=== PATIENT | female | born 1990 | race Hispanic/Latino ===

== ENCOUNTER 2019-01-22 07:46 | Emergency (ER) | payer OTHER ==
[~2019-01-22] VITALS: Ht 157.5 cm; Wt 79.4 kg
--- OUTSIDE RECORDS SUMMARY | 2019-01-22 07:48 | XMS REPORT ---
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 Allergies, Adverse Reactions, Alerts Allergy Name Allergy Type Status Severity Reaction(s) Onset Date Inactive Date Treating Clinician Comments No Known Allergies DA Active U 2018-11-30 00:00:00 Medications This patient has no known medications. Results Test Description Test Time Test Comments Text Results Atomic Results Result Comments - US PREG UT TRANSVAGINAL 2018-11-30 11:03:00 Patient Name: PACO CHRISTY Unit No: [id number] EXAMS: CPT CODE: [id number] PREG UT TRANSVAGINAL [address] [facility] [address], [place] [address] OBSTETRICAL ULTRASOUND REPORT Pat. Name: PACO CHRISTY Pat. No: [id number] Study Date: 11/30/2018 10:47am , Age: 07 1990, 27 Pregnancies: 3, Para 2 LMP: 09/28/2018 GA by LMP: 09w0d GA by US: 08w2d GA Selected: 09w0d (LMP) AUGUSTO: 07/05/2019 Referring MD: Damari Cardoso Bone Char Puller: Ivette Wallace RDMS CPT4: [id number] Hist/Ind: Scan 1: Vaginal Bleeding MEASUREMENTS AGE GROWTH EVALUATION Measurement GA Range Srce %for GA Ratios ----- ---- ------- CRL 1.8 cm 08w2d ([id number]) Hadl CRL <05 GA for sonogram 08w2d ([id number]) based on (CRL) Avg Cervical Length: 3.3 cm MATERNAL ANATOMY Ovaries LxHxW (cm) Right 2.4 x 2.1 x 2.0 Vol: 5.3cc Left 4.4 x 2.3 x 2.7 Vol: 14.3cc Ovarian Cysts LxHxW (cm) L1: 1.6 x 1.6 x 2.0 CLINICAL SUMMARY Type of Gestation: Vicente motion and organs seen: heart motion NOT seen somatic activity NOT observed abnormalities observed: CARDIAC ACTIVITY NOT SEEN. EMBRYONIC DEMISE WITH FAILED IUP. Uterus and adnexa: No significant abnormality is seen. Thank you for allowing us to participate in the care of this patient. Fox Weaver M.D. Electronic Signature 11/30/2018 11:03am [facility] NAME: PACO CHRISTY Radiology Department PHYS: 14 - Damari Cardoso MD [address] : 1990 AGE: 27 SEX: F [place], [place] [address] LOC: CASSIDY PHONE #: [phone] EXAM DATE: 11/30/2018 STATUS: [facility] ER FAX #: [phone] RAD NO: Page 1 Signed Report (CONTINUED) Patient Name: PACO CHRISTY Unit No: [id number] EXAMS: CPT CODE: [id number] [facility] TRANSVAGINAL [address] <Continued> El ectronically Signed by Fox Weaver MD on 11/30/2018 at 1103 Reported and signed by: Fox Weaver MD CC: Damari Cardoso MD Technologist: Ivette Wallace RDMS Probe: [id number] Trnscrbd D/ ( 1103) [email or web address] Orig Print D/T: S: 11/30/2018 (1102) The [facility] NAME: PACO CHRISTY Radiology Department PHYS: aDmari Kasper MD [address] : 1990 AGE: 27 SEX: F [place] [address] LOC: MadhaviERS PHONE #: [phone] EXAM DATE: 11/30/2018 STATUS: REG ER FAX #: [phone] RAD NO: Page 2 Signed Report Patient Name: PACO CHRISTY Unit No: [id number] EXAMS: CPT CODE: [id number] US PREG UT TRANSVAGINAL [address]94 <Continued> The [facility] NAME: PACO CHRISTY Radiology Department PHYS: Damari Kasper MD [address] : 1990 AGE: 27 SEX: F [place] [address] LOC: MadhaviERS PHONE #: [phone] EXAM DATE: 11/30/2018 STATUS: REG ER FAX #: [phone] RAD NO: Page 3 Signed Report - US PREG EVAL 1ST TRIMTR 2018-11-30 11:03:00 Patient Name: PACO CHRISTY Unit No: [id number] EXAMS: CPT CODE: [id number] US PREG EVAL 1ST TRIMTR [address] [facility] [address] [place], [place] [address] OBSTETRICAL ULTRASOUND REPORT Pat. Name: PACO CHRISTY Pat. No: [id number] Study Date: 11/30/2018 10:47am , Age: 07 1990, 27 Pregnancies: 3, Para 2 LMP: 09/28/2018 GA by LMP: 09w0d GA by US: 08w2d GA Selected: 09w0d (LMP) AUGUSTO: 07/05/2019 Referring MD: Damari Cardoso Bone Char Puller: Ivette Wallace RDMS CPT4: [id number] Admitting MD: Damari Cardoso Hist/Ind: Scan 1: Vaginal Bleeding MEASUREMENTS AGE GROWTH EVALUATION Measurement GA Range Srce %for GA Ratios ----- ---- ------- CRL 1.8 cm 08w2d ([id number]) Hadl CRL <05 GA for sonogram 08w2d ([id number]) based on (CRL) Avg Cervical Length: 3.3 cm MATERNAL ANATOMY Ovaries LxHxW (cm) Right 2.4 x 2.1 x 2.0 Vol: 5.3cc Left 4.4 x 2.3 x 2.7 Vol: 14.3cc Ovarian Cysts LxHxW (cm) L1: 1.6 x 1.6 x 2.0 CLINICAL SUMMARY Type of Gestation: Vicente motion and organs seen: heart motion NOT seen somatic activity NOT observed abnormalities observed: CARDIAC ACTIVITY NOT SEEN. EMBRYONIC DEMISE WITH FAILED IUP. Uterus and adnexa: No significant abnormality is seen. Thank you for allowing us to participate in the care of this patient. Fox Weaver M.D. Electronic Signature 11/30/2018 11:03am [facility] NAME: PACO CHRISTY Radiology Department PHYS: 14 - Damari Cardoso MD [address] : 1990 AGE: 27 SEX: F [place], [place] [address] LOC: CASSIDY PHONE #: [phone] EXAM DATE: 11/30/2018 STATUS: DEP ER FAX #: [phone] RAD NO: Page 1 Signed Report (CONTINUED) Patient Name: PACO CHRISTY Unit No: [id number] EXAMS: CPT CODE: [id number] US PREG EVAL 1ST TRIMTR 36540 <Continued> at 1103 Reported and signed by: Fox Weaver MD CC: Damari Cardoso MD Technologist: Ivette Wallace RDMS Probe: Trnscrbd D/ (1108) [email or web address] Orig Print D/T: S: 12/04/2018 (1411) The [facility] NAME: PACO CHRISTY Radiology Department PHYS: [facility] [address] : 1990 AGE: 27 SEX: F [place] [address] LOC: MadhaviERS PHONE #: [phone] EXAM DATE: 11/30/2018 STATUS: DEP ER FAX #: [phone] RAD NO: Page 2 Signed Report Patient Name: PACO CHRISTY Unit No: [id number] EXAMS: CPT CODE: [id number] US PREG EVAL 1ST TRIMTR [address]388 <Continued> [facility] NAME: PCAO CHRISTY Radiology Department PHYS: Damari Kasper MD [address] : 1990 AGE: 27 SEX: F [place] [address] LOC: Thanh.ERS PHONE #: [phone] EXAM DATE: 11/30/2018 STATUS: DEP ER FAX #: [phone] RAD NO: Page 3 Signed Report UA RFLX MICR CULT IF INDICATED 2018-11-30 10:26:00 UA COLOR (test code=COLU) JAY YELLOW UA APPEARANCE (test code=APPU) CLOUDY CLEAR UA GLUCOSE DIPSTICK (test code=DGLUU) NEGATIVE NEG UA BILIRUBIN DIPSTICK (test code=BILU) NEGATIVE NEG UA KETONE DIPSTICK (test code=KETU) NEGATIVE NEG UA SPECIFIC GRAVITY (test code=SGU) 1.023 1.001-1.035 UA BLOOD DIPSTICK (test code=ÁNGELA) 3+ NEG UA PH DIPSTICK (test code=HARMONY) 6.0 5-9 UA PROTEIN DIPSTICK (test code=PROU) 1+ NEG UA UROBILINIOGEN DIPSTICK (test code=URO) 2.0 mg/dL NEG UA NITRITE DIPSTICK (test code=AFSHIN) NEG NEG UA LEUKOCYTE ESTERASE DIPSTICK (test code=LEUU) 1+ NEG UA WBC (test code=WBCU) 16-20 #/hpf NONE SEEN UA RBC (test code=RBCU) 6-10 #/hpf NONE SEEN UA EPITHELIAL CELLS (test code=EPIU) MODERATE #/HPF RARE-FEW UA BACTERIA (test code=BACU) FEW /HPF RARE-FEW UA MUCUS (test code=MUCU) RARE NONE SEEN Indication for culture: Suprapubic PainCOMPREHENSIVE METABOLIC PANEL 2018-11-30 10:22:00* Test Item Value Reference Range Comments SODIUM (test code=NA) 139 mEq/L 135-145 POTASSIUM (test code=K) 3.5 mEq/L 3.5-5.0 CHLORIDE (test code=CL) 103 mEq/L 100-115 CARBON DIOXIDE (test code=CO2) 26 mEq/L 22-31 ANION GAP (test code=GAP) 13.30 10-20 GLUCOSE (test code=GLU) 96 mg/dL 65-110 BLOOD UREA NITROGEN (test code=BUN) 8 mg/dL 7-18 GLOMERULAR FILTRATION RATE (test code=GFR) 148 ml/min >60 CREATININE (test code=CREAT) 0.5 mg/dL 0.5-1.0 TOTAL PROTEIN (test code=PROT) 8.0 gm/dL 6.3-8.2 ALBUMIN (test code=ALB) 3.1 gm/dL 3.4-4.8 CALCIUM (test code=CA) 8.4 mg/dL 8.4-10.2 BILIRUBIN TOTAL (test code=BILT) 0.2 mg/dL 0.2-1.0 SGOT/AST (test code=AST) 12 units/L 15-37 SGPT/ALT (test code=ALT) 17 units/L 12-78 ALKALINE PHOSPHATASE TOTAL (test code=ALKP) 66 units/L 46-116 CBC W/AUTO [id number] 10:10:00* Test Item Value Reference Range Comments WHITE BLOOD CELL (test code=WBC) 9.7 K/mm3 6.6-12.1 RED BLOOD CELL (test code=RBC) 4.49 M/mm3 3.45-5.01 HEMOGLOBIN (test code=HGB) 11.1 g/dL 10.7-13.9 HEMATOCRIT (test code=HCT) 36.7 % 32.1-42.1 MEAN CELL VOLUME (test code=MCV) 82 fL 84.1-94.8 MEAN CELL HGB (test code=MCH) 24.7 pg 27-35 MEAN CELL HGB CONCETRATION (test code=MCHC) 30.2 gm/dL 32.2-34.1 RED CELL DISTRIBUTION WIDTH (test code=RDW) 18.8 % 12.4-16.5 PLATELET COUNT (test code=PLT) 422 K/mm3 133-385 IMMATURE PLATELET FRACTION (test code=IPF) 0.0 % 0.0-10.8 MEAN PLATELET VOLUME (test code=MPV) 9.4 fl 9.1-12.7 NEUTROPHIL % (test code=NT%) 66.3 % 56.5-79.4 LYMPHOCYTE % (test code=LY%) 25.3 % 14.3-34.3 MONOCYTE % (test code=MO%) 7.2 % 5.1-10.4 EOSINOPHIL % (test code=EO%) 0.6 % 0.1-3.0 BASOPHIL % (test code=BA%) 0.4 % 0.1-1.0 NEUTROPHIL # (test code=NT#) 6.4 K/mm3 LYMPHOCYTE # (test code=LY#) 2.5 K/mm3 MONOCYTE # (test code=MO#) 0.7 K/mm3 EOSINOPHIL # (test code=EO#) 0.06 K/mm3 BASOPHIL # (test code=BA#) 0.0 K/mm3 RBC MORPHOLOGY REQUIRED (test code=RBCM) NORMAL NORMAL PLATELET MORPHOLOGY REQUIRED (test code=PLTMR) NORMAL NORMAL UR HCG [id number] 10:08:00* Test Item Value Reference Range Comments UR HCG QUAL (test code=HCGQLU) POSITIVE
[2019-01-22 09:45] LABS: BILIRUBIN,URINE SMALL (NEGATIVE); CLARITY,URINE CLEAR (CLEAR); COLOR,URINE YELLOW (YELLOW); LEUKOCYTE ESTERASE ,URINE NEGATIVE (NEGATIVE); NITRITE,URINE NEGATIVE (NEGATIVE); PROTEIN,URINE DIPSTICK TRACE (NEGATIVE); URINE UROBILINOGEN 1 mg/dL (0.2 - 1)
[2019-01-22 10:45] LABS: KETONES,URINE 2+ (NEGATIVE)
[2019-01-22 11:02] LABS: BASOPHILS % 0.2 % (0.0-1.0); EOSINOPHILS # (AUTO) 0.1 (0.0-0.4); EOSINOPHILS % 0.4 % (0.0-6.0); HEMATOCRIT 35.3 % (34.2-44.1); HEMOGLOBIN 10.9 g/dL (12.0-16.0); LYMPHOCYTES % 13.2 % (18.0-39.1); MEAN CORPUSCULAR HEMOGLOBIN 24.1 pg (28-32); MEAN CORPUSCULAR HGB CONC 30.9 g/dL (31-35); MEAN CORPUSCULAR VOLUME 78.1 fL (81-99); MONOCYTES # (AUTO) 0.8 (0.2-0.8); MONOCYTES % 5.2 % (4.4-11.3); NEUTROPHILS # (AUTO) 12.1 (2.1-6.9); NEUTROPHILS % 80.7 % (38.7-80.0); PLATELET COUNT 470 x10e3/uL (140-360); RED BLOOD COUNT 4.52 x10e6/uL (3.6-5.1); RED CELL DISTRIBUTION WIDTH 16.3 % (11.7-14.4)
[2019-01-22 11:05] LABS: ALANINE AMINOTRANSFERASE 12 IU/L (0-55); ALBUMIN 3.8 g/dL (3.5-5.0); ALBUMIN/GLOBULIN RATIO 0.8 (0.8-2.0); ALKALINE PHOSPHATASE 51 IU/L (40-150); ANION GAP 13.3 mmol/L (8-16); BLOOD UREA NITROGEN 7 mg/dL (7-26); BUN/CREATININE RATIO 11 (6-25); CALCIUM 9.8 mg/dL (8.4-10.2); CARBON DIOXIDE 28 mmol/L (22-29); CHLORIDE 100 mmol/L (98-107); CREATININE, SERUM 0.64 mg/dL (0.57-1.11); EST GLOMERULAR FILTRATION RATE > 60 ML/MIN (60-); GLUCOSE 87 mg/dL (74-118); POTASSIUM 3.3 mmol/L (3.5-5.1); SODIUM 138 mmol/L (136-145)
[2019-01-22 11:38] LABS: BACTERIA,URINE MANY /HPF; EPITHELIAL CELLS,URINE MODERATE /LPF
--- NOTE | 2019-01-22 12:46 | Diagnostic Imaging Report ---
CT of the abdomen and pelvis, with contrast, 01/22/2019. History: Right-sided abdominal pain. Comparison: None available. Technique: Multidetector CT scanning of the abdomen and pelvis was performed from the level of the lung bases to the inferior pubic rami after intravenous administration of contrast. Oral water was administered. Coronal and sagittal multiplanar reformations were obtained. RADIATION DOSE: Total DLP: 775 mGy*cm Dose modulation, iterative reconstruction, and/or weight based adjustment of the mA/kV was utilized to reduce the radiation dose to as low as reasonably achievable. Discussion: LUNG BASES: No visualized abnormalities. ABDOMEN: The liver, gallbladder, biliary tree, spleen, pancreas, adrenal glands, and kidneys are normal. The hepatic vein, portal vein, and splenic vein are patent. The abdominal aorta is within normal limits for size. Evaluation of bowel is limited due to underdistention. There is no bowel dilatation or apparent wall thickening. The appendix is visualized and is normal. There is no evidence of adenopathy or free fluid. PELVIS: The bladder, uterus, adnexa are normal in appearance. There is no evidence of adenopathy. A small amount of free fluid is noted posteriorly, likely physiologic. BONES AND SOFT TISSUES: No abnormality. IMPRESSION: Normal CT of the abdomen and pelvis. No evidence of cholelithiasis, nephrolithiasis, appendicitis, or bowel obstruction. Signed by: John Saldana on 01/22/2019 12:42 PM
[2019-01-22] MEDS ORDERED: IOPAMIDOL 370 MG/ML 200 ML INFUS..BTL INJ ONE (12:47)
[2019-01-22] MEDS ORDERED: SODIUM CHLORIDE 0.9% 50ML 50 ML ONE (12:47)
[2019-01-22] MEDS ORDERED: DICYCLOMINE HCL 20 MG/2 ML VIAL IM ONE (13:00)
[2019-01-22] MEDS ORDERED: KETOROLAC TROMETHAMINE 30 MG/ML VIAL IV ONE (13:15)
== END 2019-01-22 14:04 | disposition home or self-care (01) ==
LOC: ER 07:46
DX: N94.0 Mittelschmerz (principal); D64.9 Anemia, unspecified; D72.829 Elevated white blood cell count, unspecified; E87.6 Hypokalemia; D47.3 Essential (hemorrhagic) thrombocythemia
CPT/HCPCS: 36415; 74177; 80053; 81001; 84702; 85025; 99284; J0500; J1885; Q9967